=== PATIENT | female | born 1960 | race Caucasian/White ===

== ENCOUNTER 2021-03-04 09:43 | Outpatient (CLI) | payer OTHER | END 2021-03-04 09:51 | disposition home or self-care (01) | LOC: RAD 09:43 | PROVIDERS: ATTEND Orthopaedic Surgery | DX: M25.511 Pain in right shoulder (principal); M25.121 Fistula, right elbow ==

== ENCOUNTER 2021-03-22 08:35 | Outpatient (CLI) | payer OTHER | END 2021-03-22 08:53 | disposition home or self-care (01) | LOC: MAMO-SONO 08:35 | PROVIDERS: ATTEND Obstetrics & Gynecology | DX: N60.02 Solitary cyst of left breast (principal); Z12.31 Encounter for screening mammogram for malignant neoplasm of breast; N64.59 Other signs and symptoms in breast; K76.0 Fatty (change of) liver, not elsewhere classified ==

== ENCOUNTER 2021-11-15 12:58 | Outpatient (CLI) | payer OTHER | END 2021-11-15 13:07 | disposition home or self-care (01) | LOC: SONOGRAMA 12:58 | PROVIDERS: ATTEND Obstetrics & Gynecology | DX: N64.51 Induration of breast (principal) ==